=== PATIENT | male | born 1990 | race Caucasian/White ===

== ENCOUNTER 2020-03-13 15:19 | Emergency (ER) | payer SELFPAY ==
[2020-03-13] MEDS ORDERED: NA CHLORIDE 0.9% 1,000 ML ONE (16:03)
[2020-03-13 16:46] LABS: Absolute Lymphocytes (CBC) 1.4 K/uL (0.7-4.9); Basophils % 0.4 % (0-1.3); Hematocrit 45.5 % (39.6-49.0); Lymphocytes % 21.4 % (15.3-44.8); MPV 11.1 fL (7.6-11.3); RBC Red Blood Cell Count 5.09 M/uL (4.33-5.43)
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
[2020-03-13 17:43] VITALS: TEMP 98.5
--- OUTSIDE RECORDS SUMMARY | 2020-03-13 17:43 | XMS REPORT | Continuity of Care Document ---
:1990 Author Organization [facility] t Address [address] [place] [address] Care Team Providers Name Role Phone Dmitry NAIK Attending Clinician Unavailable Dmitry NAIK Admitting Clinician Unavailable Problems This patient has no known problems. Allergies, Adverse Reactions, Alerts This patient has no known allergies or adverse reactions. Medications This patient has no known medications. Procedures This patient has no known procedures. Results Test Description Test Time Test Comments Results Result Comments Source RPR, Qual 2017-01-08 02:39:00 Test Item Value Reference Range Interpretation Comme nts RPR (test code = RPR) Non-Reactive Non-Reactive N Lipid [id number] 08:29:00 Test Item Value Reference Range Interpretation Comments Cholesterol (test 245 mg/dL 0-200 H code = CHOL) Triglycerides (test 268 mg/dL 9-200 H code = TRIG) HDL (test code = 42 mg/dL 40-60 N HDL) Chol/HDL (test code 5.8 Ratio 0.0-5.0 H = CHOLPHDL) LDL, Calculated 149 0-130 H (NOTE)RISK O F HEART (test code = LDLC) DISEASEPu blished by [place] Heart AssociationAnal yte Optim al Boderline Increased RiskC HOL <200 200-239 >240TRI G <150 150-199 >200HDL Male: >60 <40HDL Female: >60 <50 LDL < 100 130-15 9 >160 LDL NEAR OPTIMAL IS 100- 129 VLDL (test code = 54 mg/dL 5-40 H VLDL) LDL/HDL (test code = 4 LDLPHDL) Comprehensive Metabolic [id number] 08:29:00 Test Item Value Reference Range Interpretation Comments Sodium (test code = 139 mmol/L 135-145 N NA) Potassium (test 4.3 mmol/L 3.5-5.1 N code = K) Chloride (test code 98 mmol/L 98-105 N = CL) Carbon Dioxide 28 mmol/L 22-29 N (test code = CO2) Glucose (test code 93 mg/dL 70-115 N = GLU) Blood Urea Nitrogen 15 mg/dL 6-20 N (test code = BUN) Creatinine (test 1.0 mg/dL 0.7-1.2 N code = CREAT) Calcium (test code 10.2 mg/dL 8.3-10.5 N = CA) Prot Total (test 6.8 g/dL 6.4-8.3 N code = TP) Albumin (test code 4.3 g/dL 3.5-5.2 N = ALB) A/G Ratio (test 1.7 Ratio code = AGRATIO) Globulin (test code 2.5 2.9-3.1 L = GLOB) Bili Total (test 0.5 mg/dL 0.1-0.9 N code = TBIL) Alk Phos (test code 61 U/L 40-129 N = APHOS) AST (test code = 19 U/L 1-40 N AST) ALT (test code = 26 U/L 1-41 N ALT) BUN/Creatinine 15.0 Ratio (test code = BCRATIO) Anion Gap (test 13 mmol/L 7-16 N code = AGAP) Estimated GFR (test >60 eGFR (es timated code = GFR) mL/min/1.73m2 Glomerular Frantz tration Rate) is an est imated value,calculate d from the patient's s massimo creatinine usin g the MDRD equation.I t is NOT the patient 's actual GFR. The eGFR provides a more clinicallyusefu l measure of kidn ey disease than se rum creatinine alone.This calculation mera es sex and race into account, if the informationis provided. If th e race is not provided , and the patient isAfrican-Ameri can, multiply by 1.2 12. If sex is not prov ided, and thepatient is female, multipl y by 0.742. Results for patients <18 ye ars ofage have not been validated by th e MDRD study and shoul d be interpretedwith caution.eGFR Re sult Interpretation: eGFR > or = 60 is in t he Normal RangeeGF R < 60 may mean kidney diseaseeGFR < 1 5 may mean kidney failureRange s recommended by the National Kidney Foundation,http ://nkd ep.nih.gov CBC with [id number] 07:05:00 Test Item Value Reference Range Interpretation Comments WBC (test code = WBC) 7.3 K/cumm 4.4-10.5 N RBC (test code = RBC) 5.50 M/cumm 4.10-5.70 N Hemoglobin (test code = HGB) 15.8 gm/dL 13.4-17.4 N Hematocrit (test code = HCT) 48.4 % 38.7-52.0 N MCV (test code = MCV) 88.1 fL 80-100 N MCH (test code = MCH) 28.7 pg 27.0-32.5 N MCHC (test code = MCHC) 32.6 g/dL 32.0-37.5 N RDW (test code = RDW) 15.0 % 11.5-14.5 H Platelet Count (test code = 199 K/cumm 140-440 N PLTCT) MPV (test code = MPV) 8.8 fL Diff Method (test code = DIFFM) Auto Neutrophil (test code = NEUT) 42.3 % 36-70 N Lymphocyte (test code = LYMPH) 40.1 % 12-44 N Monocyte (test code = MONO) 9.4 % 0-11 N Eosinophil (test code = EOS) 7.6 % 0-7 H Basophil (test code = BASO) 0.6 % 0-2 N Neutro Abs (test code = ANEUT) 3.1 K/cumm 1.6-7.4 N Lymph Abs (test code = ALYMPH) 2.9 K/cumm 0.5-4.6 N Wright Abs (test code = AMONO) 0.7 K/cumm 0.0-1.2 N Eos Abs (test code = AEOS) 0.55 K/cumm 0.00-0.74 N Baso Abs (test code = ABASO) 0.0 K/cumm 0.00-0.21 N
[2020-03-13 17:44] VITALS: O2SAT 100
[2020-03-13 17:45] VITALS: BP 124/73
== END 2020-03-13 17:30 ==
LOC: ER 15:19
DX: T67.5XXA Heat exhaustion, unspecified, initial encounter (principal); X58.XXXA Exposure to other specified factors, initial encounter; Y93.H9 Activity, other involving exterior property and land maintenance, building and construction; Y92.9 Unspecified place or not applicable; Y99.9 Unspecified external cause status; Z88.0 Allergy status to penicillin; F17.210 Nicotine dependence, cigarettes, uncomplicated
CPT/HCPCS: 36415; 80048; 82550; 85025; 96360; 96361; 99283; J7030